=== PATIENT | female | born 1955 | race Caucasian/White ===

== ENCOUNTER 2021-02-25 17:43 | Emergency (ER) | payer OTHER ==
[~2021-02-25] VITALS: Ht 170.2 cm; Wt 92.9 kg
--- NOTE | 2021-02-25 19:23 | NUR ---
assessment made. PA at bedside.
--- NOTE | 2021-02-25 20:00 | NUR ---
patient to Ultrasound
--- NOTE | 2021-02-25 20:33 | NUR ---
back from ultrasound. awaiting result.
--- NOTE | 2021-02-25 21:22 | NUR ---
ultrasound resulted. re-evaluation done. patient discharged with prescription and instruction. verbalized understanding.
[2021-02-25 21:24] VITALS: BP 131/76
== END 2021-02-25 21:26 | disposition home or self-care (01) ==
LOC: ED 19:32
DX: M79.661 Pain in right lower leg (principal)
CPT/HCPCS: 99284